=== PATIENT | male | born 1965 | race Caucasian/White ===

== ENCOUNTER 2022-07-05 07:22 | Emergency (ER) | payer OTHER ==
[~2022-07-05] VITALS: Ht 180.3 cm; Wt 95.5 kg
[2022-07-05] MEDS ORDERED: PARO-38 PO (07:30)
[2022-07-05] MEDS ORDERED: ATOR20TA PO (07:30)
[2022-07-05] MEDS ORDERED: SACU1TAB PO (07:30)
[2022-07-05] MEDS ORDERED: FURO-151 PO (07:30)
[2022-07-05] MEDS ORDERED: ASPI81TA87 PO (07:30)
[2022-07-05] MEDS ORDERED: QUET200T PO (07:30)
[2022-07-05] MEDS ORDERED: CARV25TA32 PO (07:30)
[2022-07-05] MEDS ORDERED: LAMO100 PO (07:30)
[2022-07-05 07:31] VITALS: BP 122/74
[2022-07-05] MEDS ORDERED: IBUP-1554 PO (08:49)
[2022-07-05] MEDS ORDERED: ACET-2080 PO (08:57)
== END 2022-07-05 09:17 | disposition home or self-care (01) ==
LOC: EMS 07:26
DX: S83.92XA Sprain of unspecified site of left knee, initial encounter (principal); I11.0 Hypertensive heart disease with heart failure; I50.9 Heart failure, unspecified; E78.00 Pure hypercholesterolemia, unspecified; X58.XXXA Exposure to other specified factors, initial encounter; Y93.89 Activity, other specified; Y92.89 Other specified places as the place of occurrence of the external cause; Y99.8 Other external cause status
CPT/HCPCS: 29505; 99283